=== PATIENT | female | born 1970 | race Caucasian/White ===

== ENCOUNTER 2021-03-24 15:03 | Emergency (ER) | payer OTHER, MEDICAID, SELFPAY ==
[2021-03-24] VITALS (11 sets, daily range): BP systolic 92–139; BP diastolic 53–78; PULSE 60–80; RESP 10–32; TEMP 36.8; O2SAT 94–98; BMI 41.4
--- NOTE | 2021-03-24 15:32 | PC.NURSE ---
Pt also states she is having a stiff neck.
--- NOTE | 2021-03-24 16:24 | PC.NURSE ---
Pt reports feeling internal tremors - like a phone is vibrating inside my body. Some slightly visible tremors to bilat upper extremities. Speech is slow with altered melvin, but coherent. Reports headache and neck pain/stiffness.
--- NOTE | 2021-03-24 16:28 | DI.CT.S_ITS ---
PROCEDURE: CT HEAD/BRAIN WO CON INDICATIONS: Headache TECHNIQUE: Noncontrast 4.5 mm thick angled axial sections acquired from the foramen magnum to the vertex, with coronal and sagittal reformats. For radiation dose reduction, the following was used: automated exposure control, adjustment of mA and/or kV according to patient size. COMPARISON: [facility], MR, MR BRAIN WITH/WITHOUT CONTRAST, 09/09/2020, 9:21. [facility], MR, MR BRAIN WITH/WITHOUT CONTRAST, 11/21/2017, 17:52. MR, MR BRAIN WO CON, 12/11/2016, 19:07. FINDINGS: Image quality: Excellent. CSF spaces: Basal cisterns are patent. No extra-axial fluid collections. Ventricles are normal in size and shape. Brain: No midline shift. No intracranial masses or hemorrhage. Celis-white matter interface is normal. Skull and face: Calvarium and visualized facial bones are intact, without suspicious lesions. Sinuses: Visualized sinuses and mastoids are clear. IMPRESSION: No acute intracranial disease process. Dictated by: Kriss Urbina MD, PhD on 03/24/2021 at 16:40 Approved by: Kriss Urbina MD, PhD on 03/24/2021 at 16:41
--- NOTE | 2021-03-24 16:30 | ED.NEUROSD ---
HPI - Neuro Symptoms/Deficit General Chief Complaint: Neuro Symptoms/Deficit Stated Complaint: confusion, shakey Time Seen by Provider: 03/24/21 16:09 Source: patient Mode of arrival: Wheelchair Limitations: no limitations History of Present Illness HPI Narrative: Patient here with partner. Complains of ongoing confusion headache tremors since January of this year. She has seen her neurologist in this time frame. Dr. salinas, with [facility] neurology in [place]. History of migraines and tardive dyskinesia. is on Imitrex and lamotrigine and Lexapro. Patient and his partner states she was at [facility] emergency department back in January. She states no blood work or imaging was done. She states she was diagnosed with encephalitis and was instructed to follow up with her neurologist, Dr. salinas. She did have outpatient MRI of the brain. It was unremarkable, no edema. No personal or family history of multiple sclerosis or lupus. Patient states she feels like her whole body is shaking. Has ongoing headache and neck pain. No fever. On Anticoagulants: No Related Data Allergies Allergy/AdvReac Type Severity Reaction Status Date / Time amoxicillin [From Augmentin] Allergy Vomiting Verified 03/24/21 15:32 clavulanic acid Allergy Vomiting Verified 03/24/21 15:32 [From Augmentin] latex Allergy Verified 03/24/21 15:32 vaccine adjuvant system, Allergy Anaphylaxis Verified 03/24/21 15:41 [id number] liposomal hydromorphone [From Dilaudid] AdvReac ITCHING Verified 03/24/21 15:32 prochlorperazine AdvReac Rash Verified 03/24/21 15:30 [From Compazine] Review of Systems Review of Systems Narrative: GENERAL: Denies chills, fatigue, malaise, fever, sweats. HEENT: Denies sinus pain, ear pain, sore throat RESPIRATORY: Denies dyspnea, cough CARDIOVASCULAR: Denies chest pain, palpitations GASTROINTESTINAL: Denies nausea, vomiting, abdominal pain : Denies dysuria, frequency, hematuria MUSCULOSKELETAL: denies muscle or bony pain SKIN: Denies rash, skin lesions NEUROLOGIC: Denies weakness, numbness, positive headache/confusion/tremors ROS Unobtainable: All systems reviewed & are unremarkable except as noted in HPI and below Hematologic/Lymphatic On Anticoagulants: No Patient History Social History Smoking Status: Current every day smoker Smoking Status: Current every day smoker tobacco type: cigarettes alcohol intake frequency: 0-2 drinks per day Substance Use Type: marijuana Exam Narrative Exam Narrative: GENERAL: in no distress, not toxic not dyspneic HEAD: Normocephalic. EYES: Pupils equal round No scleral icterus. No papilledema, no photophobia with funduscopic ENT: Mucous membranes moist. NECK: Trachea midline. Able to actively rotate head left and right and tilt down. Does have pain with tilting upwards. CARDIOVASCULAR: Regular rate and rhythm without murmurs RESPIRATORY: Clear to auscultation. Breath sounds equal bilaterally. No wheezes, rales, or rhonchi. GASTROINTESTINAL: Abdomen soft, non-tender EXTREMITIES: No gross deformities. BACK: No flank tenderness. NEURO: AOx4. Clear speech no facial droop. Light touch intact to bilateral face hands and feet. Strong equal wax pourer bilaterally and ankle flexion hip flexion and knee flexion. Strong bilateral patellar reflexes. No pronator drift. Slight tremors of the hands SKIN: Warm and dry PSYCH: Not anxious, is cooperative Initial Vital Signs Initial Vital Signs: Vital Signs Temperature 98.2 F 03/24/21 15:24 Pulse Rate 80 03/24/21 15:24 Respiratory Rate 18 03/24/21 15:24 Blood Pressure 139/75 03/24/21 15:24 Pulse Oximetry 98 03/24/21 15:24 Course Course Course Narrative: No new issues during course of stay Orders Ordered: Discontinued Medications Sodium Chloride (Normal Saline 0.9%) 1,000 mls @ 1,000 mls/hr IV BOLUS ONE Stop: 03/24/21 17:28 Last Infusion: 03/24/21 17:57 Dose: 0 mls/hr Documented by: Admin: 03/24/21 16:55 Dose: 1,000 mls/hr Documented by: CTRANITA Valproic Acid 1,000 mg/ (Dextrose) 60 mls @ 60 mls/hr IV NOW ONE Stop: 03/24/21 16:30 Last Infusion: 03/24/21 17:48 Dose: 0 mls/hr Documented by: Admin: 03/24/21 16:55 Dose: 60 mls/hr Documented by: CTRANITA Ketorolac Tromethamine (Ketorolac 30 Mg/Ml Vial) 15 mg IV NOW ONE Stop: 03/24/21 16:29 Last Admin: 03/24/21 16:55 Dose: 15 mg Documented by: HANDMAGNOLIA Ondansetron HCl (Ondansetron 4 Mg/2 Ml Inj) 4 mg IV NOW ONE Stop: 03/24/21 16:29 Last Admin: 03/24/21 16:55 Dose: 4 mg Documented by: JOHN Reevaluation(s) Reevaluation #1: Symptoms and headache has improved with medications given here. Resting comfortably. Headache and neck pain better. results with patient and partner. They agree with treatment plan and follow-up with Dr. salinas. Return precautions reviewed with them Time: 18:11 Consultations Consultation #1: I spoke with [facility], patient's neurologist, Dr. salinas, he states there was no diagnosis of encephalitis. He states patient does have history of tardive dyskinesia and migraines. He states the MRI outpatient that was done is negative. He states of recent medications for patient, he tried to prescribe her Jazmín, but declined by insurance, he will call in her pharmacy for tetrabenazine. He recommends giving Depakote IV 1 g over 15 minutes for the headache. Also agrees with Toradol and Zofran. Also may give Decadron if needed. Time: 16:37 Vital Signs Vital signs: Vital Signs - 8 hr 03/24/21 15:24 03/24/21 15:47 03/24/21 15:59 Temperature 98.2 F Pulse Rate 80 78 74 Respiratory Rate 18 11 L 22 Blood Pressure 139/75 109/55 L Pulse Oximetry 98 95 03/24/21 16:00 03/24/21 16:30 03/24/21 16:40 Temperature Pulse Rate 78 65 79 Respiratory Rate 16 18 21 Blood Pressure 92/53 L 107/59 L 121/69 Pulse Oximetry 95 96 96 03/24/21 17:00 03/24/21 17:30 03/24/21 17:31 Temperature Pulse Rate 60 61 69 Respiratory Rate 15 10 L 32 H Blood Pressure 104/66 119/58 L Pulse Oximetry 96 96 97 MDM - Neuro Symptoms/Deficit Differential Diagnosis Differential diagnosis: Likely subarachnoid hemorrhage, multiple sclerosis and other (Meningitis/encephalitis/tardive dyskinesia/migraine headache) Lab Data Result diagrams: 03/24/21 16:10 03/24/21 16:10 Labs: Lab Results 03/24/21 03/24/21 Range/Units 16:10 16:10 WBC 8.6 (4.5-11.0) X10^3/uL RBC 5.34 H (4.0-5.2) X10^6/uL Hgb 15.5 (12.0-16.0) g/dL Hct 46.1 H (36-46) % MCV 86.2 (80-100) fL MCH 28.9 (26-34) PG MCHC 33.6 (30-36) % RDW 15.7 H (11.6-14.8) % Plt Count 269 (150-400) X10^3/uL Neut % (Auto) 57.8 (50-75) % Lymph % (Auto) 31.1 (25-40) % [place] % (Auto) 8.3 (3-14) % Eos % (Auto) 2.3 (2-4) % Baso % (Auto) 0.5 (0-2) % Neut # (Auto) 5000 (1911-3454) /uL Lymph # (Auto) 2700 (9337-6091) /uL [place] # (Auto) 700 (0-900) /uL Eos # (Auto) 200 (0-450) /uL Baso # (Auto) 0 (0-100) /uL Sodium 140 (137-145) mmol/L Potassium 4.2 (3.4-5.1) mmol/L Chloride 105 (98-107) mmol/L Carbon Dioxide 25 (22-32) mmol/L BUN 11 (7-17) mg/dL Creatinine 0.97 (0.52-1.04) mg/dL Estimated GFR > 60.0 (>60) mL/min BUN/Creatinine Ratio 11.3 (6-22) Glucose 99 (70-100) mg/dL Calcium 9.8 (8.4-10.2) mg/dL Total Bilirubin 0.4 (0.2-1.3) mg/dL AST 75 H (14-36) IU/L ALT 172 H (<35) IU/L Alkaline Phosphatase 155 H (38-126) U/L Total Protein 7.6 (6.3-8.2) g/dL Albumin 4.6 (3.5-5.0) g/dL Globulin 3.0 (1.7-4.1) g/dL Albumin/Globulin Ratio 1.5 (1.0-2.8) Imaging Data CT scan - head: Radiologist's Impression: [address] [address] [address] Scan Report Signed Patient: Germaine Cohudhary MR#: [id number] : 1970 Acct:[id number] Age/Sex: 50 / F Date of Service: 03/24/21 Loc: ED Accession Number: [id number] ?? Procedure: CT head/brain wo con Ordering Provider: Jericho Boyer MD PROCEDURE:? CT HEAD/BRAIN WO CON ? INDICATIONS:? Headache ? TECHNIQUE:? Noncontrast 4.5 mm thick angled axial sections acquired from the foramen magnum to the vertex, with coronal and sagittal reformats.? For radiation dose reduction, the following was used:? automated exposure control, adjustment of mA and/or kV according to patient size.? ? COMPARISON:? [facility], MR, MR BRAIN WITH/WITHOUT CONTRAST, 09/09/2020, 9:21. ?[facility], MR, MR BRAIN WITH/WITHOUT CONTRAST, 11/21/2017, 17:52.? MR, MR BRAIN WO CON, 12/11/2016, 19:07. ? FINDINGS:? Image quality:? Excellent.? ? CSF spaces:? Basal cisterns are patent.? No extra-axial fluid collections.? Ventricles are normal in size and shape.? ? Brain:? No midline shift.? No intracranial masses or hemorrhage.? Celis-white matter interface is normal.? ? Skull and face:? Calvarium and visualized facial bones are intact, without suspicious lesions.? ? Sinuses:? Visualized sinuses and mastoids are clear.? ? IMPRESSION:? No acute intracranial disease process. ? ? Dictated by: Kriss Urbina MD, PhD on 03/24/2021 at 16:40 ? ? Approved by: Kriss Urbina MD, PhD on 03/24/2021 at 16:41 ? MDM Narrative Medical decision making narrative: Appropriate for discharge home. Likely symptoms extension of her tardive dyskinesia and her chronic migraine headache. I did review with her neurologist. Appropriate for discharge home. Improved with medications here. Return precautions reviewed with patient. They desired discharge home. Faxed to our department Outpatient MRI with [facility] on February 23, 2021 at 3:43 p.m.. MRI brain with and without contrast was done. Impression normal MRI of the brain with and without IV contrast Discharge Plan Departure Patient Disposition: Home Clinical Impression: Headache, migraine Qualifiers: Migraine type: unspecified Status migrainosus presence: without status migrainosus Intractability: not intractable Qualified Code(s): G43.909 - Migraine, unspecified, not intractable, without status migrainosus Instructions: DI for Migraine, DI for Tardive Dyskinesia Activity Restrictions/Additional Instructions: Return if worse if any questions or concerns. See your neurologist within a week for recheck. He was sent you prescription to your pharmacy. Continue home medications
[2021-03-24] MEDS: ONDANSETRON 4 MG/2 ML INJ IV (16:55)
[2021-03-24] MEDS: VALPROIC ACID 1,000 MG in DEXTROSE 5 % IN WATER 50 ML 60 ML IV (16:55)
[2021-03-24] MEDS: SODIUM CHLORIDE 0.9% 1,000 ML 1000 ML IV (16:55)
[2021-03-24] MEDS: KETOROLAC 30 MG/ML VIAL 15 MG IV (16:55)
[2021-03-24 17:03] LABS: Alanine Aminotransferase 172 IU/L (<35); Albumin 4.6 g/dL (3.5-5.0); Albumin Globulin Ratio 1.5 (1.0-2.8); Alkaline Phosphatase 155 U/L (38-126); Aspartate Aminotransferase 75 IU/L (14-36); BUN Creatinine Ratio 11.3 (6-22); Bilirubin Total 0.4 mg/dL (0.2-1.3); Blood Urea Nitrogen 11 mg/dL (7-17); Calcium 9.8 mg/dL (8.4-10.2); Carbon Dioxide 25 mmol/L (22-32); Chloride 105 mmol/L (98-107); Estimated Glomerular Filt Rate > 60.0 mL/min (>60); Glucose 99 mg/dL (70-100); HEMOLYSIS < 15 (0-50); Potassium 4.2 mmol/L (3.4-5.1); Sodium 140 mmol/L (137-145); Total Protein 7.6 g/dL (6.3-8.2)
[2021-03-24 17:33] LABS: Add Manual Diff / Slide Review NO; Basophils Absolute Auto 0 /uL (0-100); Basophils Percent Auto 0.5 % (0-2); Eosinophils Absolute Auto 200 /uL (0-450); Eosinophils Percent Auto 2.3 % (2-4); Hematocrit 46.1 % (36-46); Hemoglobin 15.5 g/dL (12.0-16.0); Lymphocytes Absolute Auto 2700 /uL (1100-4500); Lymphocytes Percent Auto 31.1 % (25-40); Mean Corpuscular HGB Conc 33.6 % (30-36); Mean Corpuscular Hemoglobin 28.9 PG (26-34); Mean Corpuscular Volume 86.2 fL (80-100); Monocytes Absolute Auto 700 /uL (0-900); Monocytes Percent Auto 8.3 % (3-14); Neutrophils Absolute Auto 5000 /uL (1500-7000); Neutrophils Percent Auto 57.8 % (50-75); Platelet Count 269 X10^3/uL (150-400); Red Blood Cell Count 5.34 X10^6/uL (4.0-5.2); Red Cell Distribution Width 15.7 % (11.6-14.8); White Blood Cell Count 8.6 X10^3/uL (4.5-11.0)
--- NOTE | 2021-03-24 18:01 | PC.NURSE ---
Rounded on this pt after med completion. She reports that her headache is slightly improved, but she is not feeling entirely better. MD bianchi.
== END 2021-03-24 18:38 | disposition home or self-care (01) ==
PROVIDERS: Emergency Provider Emergency Medicine
DX: G43.909 Migraine, unspecified, not intractable, without status migrainosus (principal); R25.1 Tremor, unspecified
CPT/HCPCS: 36415; 70450; 80053; 85025; 96365; 96375; 99284; J1885; J2405